=== PATIENT | female | born 1995 | race Two or more races ===

== ENCOUNTER 2020-05-30 09:50 | Emergency (ER) | payer MEDICAID ==
[~2020-05-30] VITALS: Ht 149.9 cm; Wt 54.7 kg
[2020-05-30 11:12] LABS: BASOPHILS % (AUTO) 1 % (0-1); EOSINOPHILS % (AUTO) 0 % (1-7); LYMPHOCYTES % (AUTO) 10 % (22-44); MEAN CORPUSCULAR HEMOGLOBIN 31.1 pg (27.0-34.8); MEAN CORPUSCULAR HGB CONC 33.1 g/dL (32.4-35.8); MEAN PLATELET VOLUME 10.5 fL (7.4-10.4); MONOCYTES % (AUTO) 11 % (2-9); NEUTROPHILS % (AUTO) 78 % (42-75); PLATELET COUNT 214 x10^3/uL (130-400); RED BLOOD COUNT 4.76 x10^6/uL (3.82-5.3)
[2020-05-30 11:19] LABS: ALBUMIN 4.2 g/dL (3.4-5.0); ANION GAP 13 mmol/L (5-15); CALCIUM 9.9 mg/dL (8.5-10.1); CHLORIDE 108 mmol/L (98-107)
[2020-05-30 11:25] LABS: ALANINE AMINOTRANSFERASE 139 U/L (12-78); ALKALINE PHOSPHATASE 123 U/L (45-117); BILIRUBIN,TOTAL 1.2 mg/dL (0.2-1.0); CREATININE 0.62 mg/dL (0.55-1.02); TOTAL PROTEIN 8.9 g/dL (6.4-8.2)
[2020-05-30 11:39] LABS: MD SCAN
--- NOTE | 2020-05-30 13:39 | NUR ---
PT RESTING IN ROOM. NADN. CALL LIGHT IN REACH. PT RESTING BUT AROUSABLE TO VOICE. NO WANTS OR NEEDS EXPRESSED AT THIS TIME.
[2020-05-30 15:06] VITALS: BP 129/87
--- NOTE | 2020-05-30 15:10 | NUR ---
BREAK RN: SPOKE WITH PATIENT'S MOM, MOM WILL COME TO PICK PATIENT UP.
--- NOTE | 2020-05-30 15:19 | NUR ---
Patient given discharge instructions and prescription and they have confirmed that they understand the instructions. Patient stable and ambulatory with use of front wheel walker.
== END 2020-05-30 15:20 | disposition home or self-care (01) ==
LOC: ED 11:36
DX: K75.9 Inflammatory liver disease, unspecified (principal); R10.84 Generalized abdominal pain; R11.2 Nausea with vomiting, unspecified; F17.200 Nicotine dependence, unspecified, uncomplicated; Z90.49 Acquired absence of other specified parts of digestive tract
CPT/HCPCS: 36415; 76700; 80053; 80074; 83690; 84703; 85025; 99284